=== PATIENT | female | born 1950 | race Caucasian/White ===

== ENCOUNTER 2023-07-10 16:58 | Emergency (ER) | payer OTHER ==
[2023-07-10 17:13] VITALS: BMI 22.4
[2023-07-10] MEDS ORDERED: LIDOCAINE HCL 1%, 10 MG/ML (20ML VIAL) ONE (18:41)
[2023-07-10] MEDS ORDERED: CEPHALEXIN MONOHYDRATE 500 MG CAPSULE (UD) PO ONE (19:03)
[2023-07-10] MEDS ORDERED: DIPHTH,PERTUSS(ACELL),TET 0.5 ML DISP.SYRIN IM ONE ×2 (19:04→19:31)
[2023-07-10] MEDS ORDERED: CEPHALEXIN MONOHYDRATE 500 MG CAPSULE (UD) ONE (19:30)
[2023-07-10] MEDS ORDERED: CEFAZOLIN 1 GM in DEXTROSE 5%-WATER - 50 ML IVPB ONE (21:52)
[2023-07-10] MEDS ORDERED: CEFAZOLIN 2 GM in DEXTROSE 5%-WATER - 50 ML IVPB ONE (21:53)
[2023-07-10 22:24] LABS: BASO % 0.4 % (0-2.0); EOS % 1.8 % (0-4.5); HEMATOCRIT 38.8 % (32.4-45.2); HEMOGLOBIN 12.8 GM/dL (10.7-15.3); LYMPH % 10.2 % (8-40); MCH 29.9 pg (25.7-33.7); MEAN CELL VOLUME 90.5 fl (80-96); MEAN PLT VOLUME 8.8 fl (7.5-11.1); MONO % 7.3 % (3.8-10.2); NEUT % 80.3 % (42.8-82.8); PLATELET COUNT 329 10^3/uL (134-434); RBC 4.29 M/mm3 (3.60-5.2); RDW 13.7 % (11.6-15.6); WHITE BLOOD COUNT 12.7 K/mm3 (4.0-10.0)
[2023-07-10 22:31] LABS: INR 1.12 (0.83-1.09)
[2023-07-10 22:34] LABS: ACTIVATED PTT 29.2 SECONDS (25.2-36.5)
[2023-07-10 22:49] LABS: POTASSIUM 4.7 mmol/L (3.5-5.1)
[2023-07-10 22:51] LABS: CALCIUM 9.5 mg/dL (8.5-10.1)
[2023-07-10 22:52] LABS: ALBUMIN 3.5 g/dl (3.4-5.0); BLOOD UREA NITROGEN 23.6 mg/dL (7-18); MAGNESIUM 2.1 mg/dL (1.8-2.4)
[2023-07-10 22:55] LABS: CREATININE 0.8 mg/dL (0.55-1.3)
[2023-07-10 22:57] LABS: BILIRUBIN,TOTAL 0.4 mg/dL (0.2-1)
[2023-07-11 00:53] VITALS: BP 126/81; PULSE 77; RESP 16; TEMP 98.5
== END 2023-07-11 02:10 ==
LOC: JER 16:58
PROC: 0HQ1XZZ Repair Face Skin, External Approach (ICD-10-PCS; principal; 2023-07-10)
PROC: 3E03329 Introduction of Other Anti-infective into Peripheral Vein, Percutaneous Approach (ICD-10-PCS; 2023-07-10)
PROC: 3E0234Z Introduction of Serum, Toxoid and Vaccine into Muscle, Percutaneous Approach (ICD-10-PCS; 2023-07-10)
DX: S02.81XA Fracture of other specified skull and facial bones, right side, initial encounter for closed fracture (principal); S01.81XA Laceration without foreign body of other part of head, initial encounter; V00.181A Fall from other rolling-type pedestrian conveyance, initial encounter; W22.8XXA Striking against or struck by other objects, initial encounter; Y93.39 Activity, other involving climbing, rappelling and jumping off; Y92.128 Other place in nursing home as the place of occurrence of the external cause
CPT/HCPCS: 12014; 36415; 70450-TC; 72125-TC; 80053; 83735; 85025; 85610; 85730; 86850; 86900; 86901; 90471; 90715; 93005; 93010; 96365; 99285-25

== ENCOUNTER 2023-07-26 11:14 | Inpatient (IN) | payer OTHER ==
[2023-07-26 11:43] VITALS: BMI 22.8
[2023-07-26] MEDS ORDERED: SODIUM CHLORIDE 2,041 ML IV ONE (12:00)
[2023-07-26] MEDS ORDERED: ACETAMINOPHEN 650 MG SUPP.RECT PR ONE (12:03)
[2023-07-26] MEDS ORDERED: ACETAMINOPHEN 650 MG SUPP.RECT ONE (12:07)
[2023-07-26] MEDS ORDERED: ACETAMINOPHEN INJECTION 100 ML IVPB ONE ×2 (12:23→18:25)
[2023-07-26 12:47] LABS: BASO % 0.3 % (0-2.0); EOS % 0.2 % (0-4.5); HEMATOCRIT 36.5 % (32.4-45.2); LYMPH % 6.7 % (8-40); MCH 29.5 pg (25.7-33.7); MCHC 32.9 g/dl (32.0-36.0); MEAN CELL VOLUME 89.7 fl (80-96); MEAN PLT VOLUME 8.7 fl (7.5-11.1); MONO % 9.1 % (3.8-10.2); NEUT % 83.7 % (42.8-82.8); PLATELET COUNT 359 10^3/uL (134-434); RBC 4.06 M/mm3 (3.60-5.2); WHITE BLOOD COUNT 13.5 K/mm3 (4.0-10.0)
[2023-07-26 12:57] LABS: EPI CELLS 19 /uL (0-25.1); HYALINE CASTS 5 /uL (0-3.1); INR 1.28 (0.83-1.09); PROTHROMBIN TIME (PATIENT) 14.8 SEC (9.7-13.0); URINE APPEARANCE CLEAR; URINE BACTERIA 3 /uL (0-1359); URINE BILIRUBIN NEGATIVE (NEGATIVE); URINE COLOR YELLOW; URINE GLUCOSE (UA) NEGATIVE (NEGATIVE); URINE KETONE TRACE (NEGATIVE); URINE LEUK ESTERASE NEGATIVE (NEGATIVE); URINE NITRITE NEGATIVE (NEGATIVE); URINE PROTEIN 1+ (NEGATIVE); URINE RBC 24 /uL (0-23.9); URINE WBC 23 /uL (0-25.8)
[2023-07-26 12:59] LABS: ACTIVATED PTT 28.9 SECONDS (25.2-36.5)
[2023-07-26 13:15] LABS: POTASSIUM 3.8 mmol/L (3.5-5.1)
[2023-07-26 13:16] LABS: CALCIUM 9.9 mg/dL (8.5-10.1)
[2023-07-26 13:17] LABS: ALBUMIN 2.7 g/dl (3.4-5.0); BLOOD UREA NITROGEN 35.5 mg/dL (7-18)
[2023-07-26 13:20] LABS: CREATININE 0.9 mg/dL (0.55-1.3)
[2023-07-26 13:23] LABS: BILIRUBIN,TOTAL 0.5 mg/dL (0.2-1); TOT PROT 7.3 g/dl (6.4-8.2)
[2023-07-26] MEDS ORDERED: VANCOMYCIN 1,000 MG in DEXTROSE 5%-WATER - 250 ML IVPB ONE (14:53)
[2023-07-26] MEDS ORDERED: VANCOMYCIN 1 GRAM (PRE-DOCKED) 1,000 MG/250 ML BAG IVPB ONE (15:02)
[2023-07-26] MEDS ORDERED: ACETAMINOPHEN 1000 MG/100 ML BAG IVPB PRN (16:53)
[2023-07-26] MEDS ORDERED: LACTATED RINGERS SOLUTION 1000 ML INFUS.BAG IV ONE (17:44)
[2023-07-26] MEDS: DEXTROSE 5%-LACTATED RINGERS 1,000 ML IV SCH (17:55)
[2023-07-26] MEDS: PIPERACILLIN/TAZOB 3.375 GM 3.375 GM in DEXTROSE 5%-WATER - 50 ML IVPB SCH (17:55)
[2023-07-26] MEDS ORDERED: PIPERACILLIN/TAZOB 3.375 GM 3.375 GM/50 ML BAG IVPB ONE (17:56)
[2023-07-26] MEDS ORDERED: PIPERACILLIN/TAZOB 3.375 GM 3.375 GM in DEXTROSE 5%-WATER - 50 ML IVPB SCH (18:00)
[2023-07-27] MEDS: CARBIDOPA/LEVODOPA 25/100 TABLET (FP) PO SCH ×5 (00:26→21:01)
[2023-07-27] MEDS: ATORVASTATIN CA 20 MG TABLET (FP) PO SCH ×2 (00:26→21:01)
[2023-07-27] MEDS ORDERED: PIPERACILLIN/TAZOB 3.375 GM 3.375 GM/50 ML BAG IVPB ONE ×3 (02:49→17:43)
[2023-07-27] MEDS: PIPERACILLIN/TAZOB 3.375 GM 3.375 GM in DEXTROSE 5%-WATER - 50 ML IVPB SCH ×3 (03:45→17:23)
[2023-07-27 11:11] LABS: BASO % 0.1 % (0-2.0); HEMATOCRIT 33.6 % (32.4-45.2); HEMOGLOBIN 11.4 GM/dL (10.7-15.3); LYMPH % 4.8 % (8-40); MCH 30.3 pg (25.7-33.7); MCHC 34.1 g/dl (32.0-36.0); MEAN CELL VOLUME 88.8 fl (80-96); MEAN PLT VOLUME 8.5 fl (7.5-11.1); NEUT % 88.1 % (42.8-82.8); PLATELET COUNT 303 10^3/uL (134-434); RBC 3.78 M/mm3 (3.60-5.2); RDW 13.6 % (11.6-15.6); WHITE BLOOD COUNT 13.4 K/mm3 (4.0-10.0)
[2023-07-27] MEDS ORDERED: ENOXAPARIN NA (PORCINE) 40 MG/0.4 ML DISP.SYRIN SQ ONE (11:23)
[2023-07-27] MEDS: ENOXAPARIN NA (PORCINE) 40 MG/0.4 ML DISP.SYRIN SQ SCH (11:30)
[2023-07-27 11:42] LABS: POTASSIUM 3.6 mmol/L (3.5-5.1)
[2023-07-27 11:44] LABS: ALBUMIN 2.4 g/dl (3.4-5.0); CALCIUM 8.5 mg/dL (8.5-10.1)
[2023-07-27 11:45] LABS: MAGNESIUM 1.9 mg/dL (1.8-2.4)
[2023-07-27 11:46] LABS: PHOSPHOROUS 1.8 mg/dL (2.5-4.9)
[2023-07-27 11:47] LABS: CREATININE 0.6 mg/dL (0.55-1.3)
[2023-07-27 11:48] LABS: BILIRUBIN,TOTAL 0.6 mg/dL (0.2-1); TOT PROT 6.4 g/dl (6.4-8.2)
[2023-07-27] MEDS ORDERED: VANCOMYCIN 1,000 MG in DEXTROSE 5%-WATER - 250 ML IVPB ONE (16:45)
[2023-07-27] MEDS ORDERED: CARBIDOPA/LEVODOPA 25/100 TABLET (FP) ONE (17:14)
[2023-07-27] MEDS ORDERED: VANCOMYCIN 1 GRAM (PRE-DOCKED) 1,000 MG/250 ML BAG IVPB ONE (17:14)
[2023-07-27] MEDS: DEXTROSE 5%-LACTATED RINGERS 1,000 ML IV SCH (17:22)
[2023-07-28] MEDS: PIPERACILLIN/TAZOB 3.375 GM 3.375 GM in DEXTROSE 5%-WATER - 50 ML IVPB SCH ×3 (02:25→17:53)
[2023-07-28] MEDS ORDERED: PIPERACILLIN/TAZOB 3.375 GM 3.375 GM/50 ML BAG IVPB ONE ×3 (02:30→17:54)
[2023-07-28 08:16] LABS: POTASSIUM 3.8 mmol/L (3.5-5.1)
[2023-07-28 08:23] LABS: CALCIUM 9.3 mg/dL (8.5-10.1)
[2023-07-28 08:25] LABS: ALBUMIN 2.5 g/dl (3.4-5.0); BASO % 0.2 % (0-2.0); EOS % 1.5 % (0-4.5); HEMATOCRIT 35.8 % (32.4-45.2); HEMOGLOBIN 12.1 GM/dL (10.7-15.3); LYMPH % 5.9 % (8-40); MCHC 33.9 g/dl (32.0-36.0); MEAN CELL VOLUME 88.7 fl (80-96); MEAN PLT VOLUME 8.8 fl (7.5-11.1); MONO % 6.2 % (3.8-10.2); NEUT % 86.2 % (42.8-82.8); PLATELET COUNT 313 10^3/uL (134-434); RBC 4.03 M/mm3 (3.60-5.2); RDW 13.6 % (11.6-15.6); WHITE BLOOD COUNT 13.5 K/mm3 (4.0-10.0)
[2023-07-28 08:27] LABS: CREATININE 0.6 mg/dL (0.55-1.3)
[2023-07-28 08:28] LABS: BILIRUBIN,TOTAL 0.6 mg/dL (0.2-1); TOT PROT 6.7 g/dl (6.4-8.2)
[2023-07-28] MEDS: CARBIDOPA/LEVODOPA 25/100 TABLET (FP) PO SCH ×4 (11:00→21:31)
[2023-07-28] MEDS: ENOXAPARIN NA (PORCINE) 40 MG/0.4 ML DISP.SYRIN SQ SCH (11:00)
[2023-07-28] MEDS ORDERED: CARBIDOPA/LEVODOPA 25/100 TABLET (FP) ONE (17:34)
[2023-07-28] MEDS ORDERED: CEFTRIAXONE 1 GM/50 ML BAG ONE (17:34)
[2023-07-28] MEDS ORDERED: DOXYCYCLINE HYCLATE 100 MG VIAL ONE (17:34)
[2023-07-28] MEDS ORDERED: DOXYCYCLINE HYCLATE 100 MG CAPSULE PO ONE (17:41)
[2023-07-28] MEDS: DEXTROSE 5%-LACTATED RINGERS 1,000 ML IV SCH (17:53)
[2023-07-28] MEDS: ATORVASTATIN CA 20 MG TABLET (FP) PO SCH (21:31)
[2023-07-29] MEDS: PIPERACILLIN/TAZOB 3.375 GM 3.375 GM in DEXTROSE 5%-WATER - 50 ML IVPB SCH ×3 (02:12→17:40)
[2023-07-29] MEDS: DEXTROSE 5%-LACTATED RINGERS 1,000 ML IV SCH ×2 (07:09→21:56)
[2023-07-29 09:17] LABS: BASO % 0.2 % (0-2.0); EOS % 2.3 % (0-4.5); HEMATOCRIT 35.9 % (32.4-45.2); HEMOGLOBIN 12.2 GM/dL (10.7-15.3); LYMPH % 7.6 % (8-40); MCH 30.3 pg (25.7-33.7); MCHC 34.1 g/dl (32.0-36.0); MEAN CELL VOLUME 88.9 fl (80-96); MEAN PLT VOLUME 8.9 fl (7.5-11.1); MONO % 6.4 % (3.8-10.2); NEUT % 83.5 % (42.8-82.8); PLATELET COUNT 286 10^3/uL (134-434); RBC 4.04 M/mm3 (3.60-5.2); WHITE BLOOD COUNT 12.3 K/mm3 (4.0-10.0)
[2023-07-29 09:42] LABS: BLOOD UREA NITROGEN 19.9 mg/dL (7-18); CALCIUM 8.9 mg/dL (8.5-10.1)
[2023-07-29 09:43] LABS: ALBUMIN 2.2 g/dl (3.4-5.0)
[2023-07-29 09:45] LABS: CREATININE 0.7 mg/dL (0.55-1.3)
[2023-07-29 09:47] LABS: BILIRUBIN,TOTAL 0.4 mg/dL (0.2-1); TOT PROT 6.1 g/dl (6.4-8.2)
[2023-07-29] MEDS: ENOXAPARIN NA (PORCINE) 40 MG/0.4 ML DISP.SYRIN SQ SCH (09:50)
[2023-07-29] MEDS: CARBIDOPA/LEVODOPA 25/100 TABLET (FP) PO SCH ×4 (09:50→21:56)
[2023-07-29] MEDS: ATORVASTATIN CA 20 MG TABLET (FP) PO SCH (21:56)
[2023-07-30] MEDS: PIPERACILLIN/TAZOB 3.375 GM 3.375 GM in DEXTROSE 5%-WATER - 50 ML IVPB SCH ×3 (01:33→17:45)
[2023-07-30] MEDS: CARBIDOPA/LEVODOPA 25/100 TABLET (FP) PO SCH ×4 (09:07→21:24)
[2023-07-30] MEDS: ENOXAPARIN NA (PORCINE) 40 MG/0.4 ML DISP.SYRIN SQ SCH (09:07)
[2023-07-30 09:34] LABS: BASO % 0.4 % (0-2.0); EOS % 2.5 % (0-4.5); HEMATOCRIT 35.2 % (32.4-45.2); HEMOGLOBIN 11.6 GM/dL (10.7-15.3); LYMPH % 8.9 % (8-40); MCH 29.5 pg (25.7-33.7); MEAN CELL VOLUME 89.6 fl (80-96); MEAN PLT VOLUME 9.2 fl (7.5-11.1); NEUT % 83.2 % (42.8-82.8); PLATELET COUNT 325 10^3/uL (134-434); RBC 3.92 M/mm3 (3.60-5.2); RDW 13.6 % (11.6-15.6); WHITE BLOOD COUNT 12.6 K/mm3 (4.0-10.0)
[2023-07-30 09:57] LABS: POTASSIUM 3.4 mmol/L (3.5-5.1)
[2023-07-30 10:14] LABS: ALBUMIN 2.4 g/dl (3.4-5.0)
[2023-07-30 10:15] LABS: BLOOD UREA NITROGEN 15.5 mg/dL (7-18); CALCIUM 9.6 mg/dL (8.5-10.1)
[2023-07-30 10:18] LABS: CREATININE 0.6 mg/dL (0.55-1.3)
[2023-07-30] MEDS ORDERED: ACETAMINOPHEN 325 MG TABLET (FP) PO PRN (10:18)
[2023-07-30 10:20] LABS: BILIRUBIN,TOTAL 0.5 mg/dL (0.2-1)
[2023-07-30] MEDS: DEXTROSE 5%-LACTATED RINGERS 1,000 ML IV SCH (17:47)
[2023-07-30] MEDS: ATORVASTATIN CA 20 MG TABLET (FP) PO SCH (21:24)
[2023-07-31] MEDS: PIPERACILLIN/TAZOB 3.375 GM 3.375 GM in DEXTROSE 5%-WATER - 50 ML IVPB SCH ×3 (01:35→18:15)
[2023-07-31] MEDS ORDERED: SODIUM CHLORIDE 1,000 ML IV STA (01:50)
[2023-07-31] MEDS ORDERED: POTASSIUM CHLORIDE TABS 20 MEQ TABLET.ER (FP) PO ONE (01:52)
[2023-07-31] MEDS: DEXTROSE 5%-LACTATED RINGERS 1,000 ML IV SCH ×2 (05:49→18:15)
[2023-07-31] MEDS: CARBIDOPA/LEVODOPA 25/100 TABLET (FP) PO SCH ×4 (09:55→22:18)
[2023-07-31] MEDS: ENOXAPARIN NA (PORCINE) 40 MG/0.4 ML DISP.SYRIN SQ SCH (09:55)
[2023-07-31 10:24] LABS: BASO % 0.6 % (0-2.0); EOS % 1.5 % (0-4.5); HEMATOCRIT 31.8 % (32.4-45.2); HEMOGLOBIN 10.4 GM/dL (10.7-15.3); LYMPH % 9.2 % (8-40); MCH 29.5 pg (25.7-33.7); MCHC 32.8 g/dl (32.0-36.0); MEAN PLT VOLUME 9.6 fl (7.5-11.1); MONO % 5.1 % (3.8-10.2); NEUT % 83.6 % (42.8-82.8); PLATELET COUNT 312 10^3/uL (134-434); RBC 3.54 M/mm3 (3.60-5.2); RDW 13.6 % (11.6-15.6); WHITE BLOOD COUNT 12.3 K/mm3 (4.0-10.0)
[2023-07-31 10:55] LABS: POTASSIUM 4.1 mmol/L (3.5-5.1)
[2023-07-31 11:09] LABS: CALCIUM 8.2 mg/dL (8.5-10.1)
[2023-07-31 11:11] LABS: BLOOD UREA NITROGEN 13.4 mg/dL (7-18); CREATININE 0.7 mg/dL (0.55-1.3)
[2023-07-31 11:13] LABS: BILIRUBIN,TOTAL 0.4 mg/dL (0.2-1); TOT PROT 5.7 g/dl (6.4-8.2)
[2023-07-31] MEDS: ATORVASTATIN CA 20 MG TABLET (FP) PO SCH (22:18)
[2023-07-31 22:20] VITALS: RESP 20
[2023-08-01] MEDS ORDERED: ACETAMINOPHEN 1000 MG/100 ML BAG IVPB ONE (01:05)
[2023-08-01] MEDS: PIPERACILLIN/TAZOB 3.375 GM 3.375 GM in DEXTROSE 5%-WATER - 50 ML IVPB SCH ×3 (01:54→17:37)
[2023-08-01 09:46] LABS: BASO % 0.4 % (0-2.0); EOS % 1.4 % (0-4.5); HEMATOCRIT 31.3 % (32.4-45.2); HEMOGLOBIN 10.2 GM/dL (10.7-15.3); LYMPH % 9.5 % (8-40); MCH 29.3 pg (25.7-33.7); MCHC 32.6 g/dl (32.0-36.0); MEAN CELL VOLUME 89.7 fl (80-96); MEAN PLT VOLUME 9.2 fl (7.5-11.1); MONO % 4.7 % (3.8-10.2); PLATELET COUNT 294 10^3/uL (134-434); RBC 3.48 M/mm3 (3.60-5.2); RDW 13.8 % (11.6-15.6); WHITE BLOOD COUNT 12.8 K/mm3 (4.0-10.0)
[2023-08-01] MEDS ORDERED: PIPERACILLIN/TAZOBACTAM 3.375 GM VIAL IVPB ONE ×2 (09:50→16:47)
[2023-08-01 09:58] LABS: POTASSIUM 3.7 mmol/L (3.5-5.1)
[2023-08-01 10:04] LABS: CALCIUM 8.7 mg/dL (8.5-10.1); MAGNESIUM 1.8 mg/dL (1.8-2.4)
[2023-08-01 10:07] LABS: BLOOD UREA NITROGEN 11.4 mg/dL (7-18); CREATININE 0.6 mg/dL (0.55-1.3)
[2023-08-01 10:08] LABS: BILIRUBIN,TOTAL 0.4 mg/dL (0.2-1); TOT PROT 5.5 g/dl (6.4-8.2)
[2023-08-01] MEDS: CARBIDOPA/LEVODOPA 25/100 TABLET (FP) PO SCH ×4 (10:43→21:33)
[2023-08-01] MEDS: ENOXAPARIN NA (PORCINE) 40 MG/0.4 ML DISP.SYRIN SQ SCH (10:43)
[2023-08-01] MEDS: DEXTROSE 5%-LACTATED RINGERS 1,000 ML IV SCH (17:56)
[2023-08-01] MEDS: ATORVASTATIN CA 20 MG TABLET (FP) PO SCH (21:34)
[2023-08-02] MEDS: PIPERACILLIN/TAZOB 3.375 GM 3.375 GM in DEXTROSE 5%-WATER - 50 ML IVPB SCH ×2 (01:26→09:46)
[2023-08-02] MEDS: DEXTROSE 5%-LACTATED RINGERS 1,000 ML IV SCH (06:42)
[2023-08-02] MEDS: CARBIDOPA/LEVODOPA 25/100 TABLET (FP) PO SCH ×4 (09:45→22:38)
[2023-08-02] MEDS: ENOXAPARIN NA (PORCINE) 40 MG/0.4 ML DISP.SYRIN SQ SCH (09:46)
[2023-08-02 09:51] VITALS: PULSE 77
[2023-08-02 10:16] LABS: BASO % 0.4 % (0-2.0); EOS % 0.6 % (0-4.5); HEMATOCRIT 29.9 % (32.4-45.2); HEMOGLOBIN 9.8 GM/dL (10.7-15.3); LYMPH % 7.3 % (8-40); MCH 29.7 pg (25.7-33.7); MCHC 32.9 g/dl (32.0-36.0); MEAN CELL VOLUME 90.2 fl (80-96); MEAN PLT VOLUME 9.3 fl (7.5-11.1); MONO % 4.3 % (3.8-10.2); NEUT % 87.4 % (42.8-82.8); PLATELET COUNT 360 10^3/uL (134-434); RBC 3.31 M/mm3 (3.60-5.2); RDW 14.2 % (11.6-15.6); WHITE BLOOD COUNT 15.4 K/mm3 (4.0-10.0)
[2023-08-02 10:27] LABS: POTASSIUM 3.7 mmol/L (3.5-5.1)
[2023-08-02 10:49] LABS: ALBUMIN 2.1 g/dl (3.4-5.0); BLOOD UREA NITROGEN 12.8 mg/dL (7-18); CALCIUM 8.4 mg/dL (8.5-10.1); MAGNESIUM 1.9 mg/dL (1.8-2.4)
[2023-08-02 10:53] LABS: CREATININE 0.7 mg/dL (0.55-1.3)
[2023-08-02 10:54] LABS: BILIRUBIN,TOTAL 0.4 mg/dL (0.2-1); TOT PROT 6.1 g/dl (6.4-8.2)
[2023-08-02] MEDS ORDERED: BACITRACIN ZINC 15 GM TUBE TOPICAL OINTMENT TP SCH (11:00)
[2023-08-02 14:58] VITALS: BP 109/68; TEMP 99.3
== END 2023-08-02 22:30 | DRG 177 ==
LOC: JER 11:14 → JERBED 14:58 → OBSVTOIN 17:43 → J8W 07-28 18:37
PROVIDERS: ADMIT Internal Medicine; ATTEND Nurse Practitioner Family
DX: J69.0 Pneumonitis due to inhalation of food and vomit (principal); G93.41 Metabolic encephalopathy; R53.2 Functional quadriplegia; N17.9 Acute kidney failure, unspecified; N39.0 Urinary tract infection, site not specified; R41.82 Altered mental status, unspecified; G20.A1 Parkinson's disease without dyskinesia, without mention of fluctuations; I12.9 Hypertensive chronic kidney disease with stage 1 through stage 4 chronic kidney disease, or unspecified chronic kidney disease; N18.9 Chronic kidney disease, unspecified; F32.9 Major depressive disorder, single episode, unspecified; I44.7 Left bundle-branch block, unspecified; D72.829 Elevated white blood cell count, unspecified; F02.80 Dementia in other diseases classified elsewhere, unspecified severity, without behavioral disturbance, psychotic disturbance, mood disturbance, and anxiety; R13.10 Dysphagia, unspecified
CPT/HCPCS: 0241U-QW; 36415; 70450-TC; 71045-TC-FY; 80053; 81003; 83605; 83735; 84100; 85025; 85610; 85730; 86850; 86900; 86901; 87040; 87081; 87086; 87633; 87635; 93005; 93010; 99285-25; G0378

== ENCOUNTER 2023-10-04 06:25 | Inpatient (IN) | payer OTHER ==
[2023-10-04 06:55] VITALS: BMI 23.1
[2023-10-04 08:50] LABS: BASO % 0.5 % (0-2.0); EOS % 0.3 % (0-4.5); HEMATOCRIT 38.9 % (32.4-45.2); HEMOGLOBIN 13.2 GM/dL (10.7-15.3); LYMPH % 8.9 % (8-40); MCHC 33.9 g/dl (32.0-36.0); MEAN CELL VOLUME 88.6 fl (80-96); MEAN PLT VOLUME 8.5 fl (7.5-11.1); MONO % 5.3 % (3.8-10.2); PLATELET COUNT 345 10^3/uL (134-434); RBC 4.39 M/mm3 (3.60-5.2); RDW 17.1 % (11.6-15.6); WHITE BLOOD COUNT 7.5 K/mm3 (4.0-10.0)
[2023-10-04 08:58] LABS: INR 1.09 (0.83-1.09); PROTHROMBIN TIME (PATIENT) 12.6 SEC (9.7-13.0)
[2023-10-04 09:01] LABS: ACTIVATED PTT 29.7 SECONDS (25.2-36.5)
[2023-10-04 09:04] LABS: POTASSIUM 4.6 mmol/L (3.5-5.1)
[2023-10-04 09:06] LABS: BLOOD UREA NITROGEN 16.4 mg/dL (7-18); CALCIUM 9.8 mg/dL (8.5-10.1)
[2023-10-04 09:07] LABS: ALBUMIN 3.4 g/dl (3.4-5.0)
[2023-10-04 09:09] LABS: CREATININE 0.5 mg/dL (0.55-1.3)
[2023-10-04 09:12] LABS: BILIRUBIN,TOTAL 0.4 mg/dL (0.2-1); TOT PROT 7.5 g/dl (6.4-8.2)
[2023-10-04] MEDS ORDERED: ACETAMINOPHEN 325 MG TABLET (FP) PO PRN (13:36)
[2023-10-04] MEDS ORDERED: CARBIDOPA/LEVODOPA 25/100 TABLET (FP) ONE ×3 (14:32→22:50)
[2023-10-04] MEDS ORDERED: CITALOPRAM HYDROBROMIDE 10 MG TABLET ONE (14:32)
[2023-10-04] MEDS: CITALOPRAM HYDROBROMIDE 10 MG TABLET PO SCH (14:42)
[2023-10-04] MEDS: CARBIDOPA/LEVODOPA 25/100 TABLET (FP) PO SCH (14:42)
[2023-10-04] MEDS: SODIUM CHLORIDE 1,000 ML IV SCH (14:42)
[2023-10-04] MEDS ORDERED: ATORVASTATIN CA 20 MG TABLET (FP) ONE (22:50)
[2023-10-04] MEDS: ATORVASTATIN CA 20 MG TABLET (FP) PO SCH (23:03)
[2023-10-05 07:39] LABS: HEMATOCRIT 35.3 % (32.4-45.2); HEMOGLOBIN 11.6 GM/dL (10.7-15.3); MCH 29.7 pg (25.7-33.7); MCHC 32.9 g/dl (32.0-36.0); MEAN CELL VOLUME 90.2 fl (80-96); MEAN PLT VOLUME 8.4 fl (7.5-11.1); PLATELET COUNT 287 10^3/uL (134-434); RBC 3.92 M/mm3 (3.60-5.2); RDW 17.1 % (11.6-15.6); WHITE BLOOD COUNT 3.6 K/mm3 (4.0-10.0)
[2023-10-05 07:49] LABS: INR 1.17 (0.83-1.09); PROTHROMBIN TIME (PATIENT) 13.5 SEC (9.7-13.0)
[2023-10-05 07:53] LABS: POTASSIUM 4.1 mmol/L (3.5-5.1)
[2023-10-05 07:55] LABS: CALCIUM 9.2 mg/dL (8.5-10.1)
[2023-10-05 07:56] LABS: ALBUMIN 2.9 g/dl (3.4-5.0); BLOOD UREA NITROGEN 14.3 mg/dL (7-18)
[2023-10-05 07:59] LABS: CREATININE 0.4 mg/dL (0.55-1.3)
[2023-10-05 08:01] LABS: BILIRUBIN,TOTAL 0.5 mg/dL (0.2-1); TOT PROT 6.4 g/dl (6.4-8.2)
[2023-10-05] MEDS: ENOXAPARIN NA (PORCINE) 40 MG/0.4 ML DISP.SYRIN SQ SCH (10:52)
[2023-10-05] MEDS ORDERED: CARBIDOPA/LEVODOPA 25/100 TABLET (FP) ONE (14:23)
[2023-10-07] MEDS: DEXTROSE 5%-0.45% SALINE 1,000 ML IV SCH (04:30)
[2023-10-07 10:39] LABS: EPI CELLS 33 /uL (0-25.1); HYALINE CASTS 0 /uL (0-3.1); URINE APPEARANCE Error; URINE BACTERIA 38 /uL (0-1359); URINE BILIRUBIN NEGATIVE (NEGATIVE); URINE COLOR YELLOW; URINE GLUCOSE (UA) NEGATIVE (NEGATIVE); URINE KETONE TRACE (NEGATIVE); URINE LEUK ESTERASE 1+ (NEGATIVE); URINE NITRITE NEGATIVE (NEGATIVE); URINE PROTEIN NEGATIVE (NEGATIVE); URINE RBC 19 /uL (0-23.9); URINE WBC 23 /uL (0-25.8)
[2023-10-07 12:12] LABS: URINE CRYSTALS PRESENT /hpf
[2023-10-07 19:21] VITALS: RESP 18
[2023-10-09 02:02] VITALS: BP 139/61; PULSE 81; TEMP 97.6
== END 2023-10-09 08:40 | DRG 57 ==
LOC: JER 06:25 → JERBED 08:02 → OBSVTOIN 10-05 08:02 → J4S 10-05 16:56
PROVIDERS: ADMIT Internal Medicine; ATTEND Internal Medicine
DX: G20.A1 Parkinson's disease without dyskinesia, without mention of fluctuations (principal); I12.9 Hypertensive chronic kidney disease with stage 1 through stage 4 chronic kidney disease, or unspecified chronic kidney disease; N18.9 Chronic kidney disease, unspecified; G31.83 Neurocognitive disorder with Lewy bodies; F02.80 Dementia in other diseases classified elsewhere, unspecified severity, without behavioral disturbance, psychotic disturbance, mood disturbance, and anxiety
CPT/HCPCS: 0241U-QW; 36415; 70450-TC; 70486-TC; 71045-TC-FY; 72125-TC; 72170-TC-FY; 72192-TC; 80053; 81003; 82962; 83735; 84484; 85025; 85027; 85610; 85730; 86850; 86900; 86901; 93005; 93010; 93306-TC; 93880-TC; 97116-GP; 97161-GP; 99285-25; G0378

== ENCOUNTER 2023-11-27 15:37 | Inpatient (IN) | payer OTHER ==
[2023-11-27 16:35] LABS: BASO % 0.3 % (0-2.0); HEMATOCRIT 40.7 % (32.4-45.2); HEMOGLOBIN 13.7 GM/dL (10.7-15.3); LYMPH % 7.9 % (8-40); MCH 29.7 pg (25.7-33.7); MCHC 33.6 g/dl (32.0-36.0); MEAN CELL VOLUME 88.4 fl (80-96); MEAN PLT VOLUME 8.3 fl (7.5-11.1); MONO % 4.5 % (3.8-10.2); NEUT % 86.3 % (42.8-82.8); PLATELET COUNT 269 10^3/uL (134-434); WHITE BLOOD COUNT 7.9 K/mm3 (4.0-10.0)
[2023-11-27 16:40] LABS: INR 1.11 (0.83-1.09); PROTHROMBIN TIME (PATIENT) 12.5 SEC (9.7-13.0)
[2023-11-27 16:43] LABS: ACTIVATED PTT 28.5 SECONDS (25.2-36.5)
[2023-11-27 16:56] LABS: EPI CELLS >36 /uL (0-25.1); HYALINE CASTS 122 /uL (0-3.1); PH,URINE 8.5 (5.0-8.0); URINE APPEARANCE TURBID; URINE BACTERIA >9,000 /uL (0-1359); URINE BILIRUBIN NEGATIVE (NEGATIVE); URINE COLOR YELLOW; URINE GLUCOSE (UA) NEGATIVE (NEGATIVE); URINE KETONE NEGATIVE (NEGATIVE); URINE LEUK ESTERASE 3+ (NEGATIVE); URINE NITRITE NEGATIVE (NEGATIVE); URINE PROTEIN 3+ (NEGATIVE); URINE RBC 64 /uL (0-23.9); URINE WBC 5230 /uL (0-25.8)
[2023-11-27 17:05] LABS: POTASSIUM 4.4 mmol/L (3.5-5.1)
[2023-11-27 17:07] LABS: CALCIUM 9.3 mg/dL (8.5-10.1)
[2023-11-27 17:08] LABS: ALBUMIN 3.3 g/dl (3.4-5.0); BLOOD UREA NITROGEN 20.3 mg/dL (7-18)
[2023-11-27 17:10] LABS: CREATININE 0.6 mg/dL (0.55-1.3)
[2023-11-27 17:12] LABS: BILIRUBIN,TOTAL 0.4 mg/dL (0.2-1); TOT PROT 6.6 g/dl (6.4-8.2)
[2023-11-27 17:33] LABS: YEAST FEW (NEGATIVE)
[2023-11-27] MEDS ORDERED: MIDAZOLAM HCL 2 MG/2 ML SINGLE DOSE VIAL ONE (17:53)
[2023-11-27] MEDS ORDERED: CEFTRIAXONE 1 GM/50 ML BAG ONE (17:58)
[2023-11-27] MEDS: CEFTRIAXONE 1,000 MG in DEXTROSE 5%-WATER - 50 ML IVPB ONE (18:07)
[2023-11-27] MEDS: MIDAZOLAM HCL 2 MG/2 ML SINGLE DOSE VIAL IVPUSH ONE (18:07)
[2023-11-27] MEDS ORDERED: LIDOCAINE 4% PATCH TP ONE (19:01)
[2023-11-27] MEDS ORDERED: KETOROLAC TROMETHAMINE 30 MG/1 ML VIAL ONE (19:01)
[2023-11-27] MEDS ORDERED: ACETAMINOPHEN 500 MG TABLET (FP) ONE (19:02)
[2023-11-27] MEDS ORDERED: ACETAMINOPHEN INJECTION 100 ML IVPB ONE (20:04)
[2023-11-27] MEDS: ACETAMINOPHEN 1000 MG/100 ML BAG IVPB ONE (20:16)
[2023-11-28 08:18] LABS: BASO % 0.6 % (0-2.0); EOS % 1.3 % (0-4.5); HEMOGLOBIN 12.9 GM/dL (10.7-15.3); LYMPH % 10.2 % (8-40); MCH 29.7 pg (25.7-33.7); MCHC 33.2 g/dl (32.0-36.0); MEAN CELL VOLUME 89.4 fl (80-96); MEAN PLT VOLUME 8.9 fl (7.5-11.1); MONO % 7.5 % (3.8-10.2); NEUT % 80.4 % (42.8-82.8); PLATELET COUNT 225 10^3/uL (134-434); RBC 4.36 M/mm3 (3.60-5.2); RDW 15.9 % (11.6-15.6)
[2023-11-28 08:22] LABS: POTASSIUM 4.1 mmol/L (3.5-5.1)
[2023-11-28 08:25] LABS: CALCIUM 9.2 mg/dL (8.5-10.1)
[2023-11-28 08:26] LABS: ALBUMIN 3.2 g/dl (3.4-5.0); BLOOD UREA NITROGEN 16.7 mg/dL (7-18); MAGNESIUM 2.1 mg/dL (1.8-2.4)
[2023-11-28 08:29] LABS: CREATININE 0.5 mg/dL (0.55-1.3); PHOSPHOROUS 3.1 mg/dL (2.5-4.9)
[2023-11-28 08:30] LABS: BILIRUBIN,TOTAL 1.1 mg/dL (0.2-1)
[2023-11-28 08:31] LABS: TOT PROT 6.1 g/dl (6.4-8.2)
[2023-11-28] MEDS: CEFTRIAXONE 1 GM in DEXTROSE 5%-WATER - 50 ML IVPB SCH (09:38)
[2023-11-28] MEDS: ENOXAPARIN NA (PORCINE) 40 MG/0.4 ML DISP.SYRIN SQ SCH (09:38)
[2023-11-28] MEDS: ASCORBIC ACID 500 MG TABLET (FP) PO SCH (09:39)
[2023-11-28] MEDS: CARBIDOPA/LEVODOPA 25/100 TABLET (FP) PO SCH (09:39)
[2023-11-28] MEDS: CITALOPRAM HYDROBROMIDE 10 MG TABLET PO SCH (12:08)
[2023-11-28 12:13] LABS: EPI CELLS >36 /uL (0-25.1); HYALINE CASTS 6 /uL (0-3.1); URINE APPEARANCE TURBID; URINE BACTERIA 1929 /uL (0-1359); URINE BILIRUBIN NEGATIVE (NEGATIVE); URINE COLOR YELLOW; URINE GLUCOSE (UA) NEGATIVE (NEGATIVE); URINE KETONE TRACE (NEGATIVE); URINE LEUK ESTERASE 3+ (NEGATIVE); URINE NITRITE NEGATIVE (NEGATIVE); URINE PROTEIN NEGATIVE (NEGATIVE); URINE RBC 25 /uL (0-23.9); URINE WBC 1410 /uL (0-25.8)
[2023-11-28] MEDS: SODIUM CHLORIDE 250 ML IV STA (16:57)
[2023-11-28] MEDS: ATORVASTATIN CA 20 MG TABLET (FP) PO SCH (21:48)
[2023-11-29 08:21] LABS: CALCIUM 9.6 mg/dL (8.5-10.1)
[2023-11-29 08:22] LABS: ALBUMIN 3.3 g/dl (3.4-5.0); BLOOD UREA NITROGEN 16.8 mg/dL (7-18)
[2023-11-29 08:24] LABS: CREATININE 0.6 mg/dL (0.55-1.3)
[2023-11-29 08:25] LABS: BILIRUBIN,DIRECT 0.2 mg/dL (0.0-0.2); BILIRUBIN,TOTAL 0.7 mg/dL (0.2-1); TOT PROT 6.5 g/dl (6.4-8.2)
[2023-11-29 08:26] LABS: BASO % 0.8 % (0-2.0); EOS % 1.2 % (0-4.5); HEMATOCRIT 38.9 % (32.4-45.2); HEMOGLOBIN 13.1 GM/dL (10.7-15.3); LYMPH % 13.7 % (8-40); MCH 29.9 pg (25.7-33.7); MCHC 33.6 g/dl (32.0-36.0); MEAN PLT VOLUME 8.9 fl (7.5-11.1); MONO % 7.3 % (3.8-10.2); PLATELET COUNT 207 10^3/uL (134-434); RBC 4.37 M/mm3 (3.60-5.2); RDW 15.8 % (11.6-15.6)
[2023-11-29] MEDS: CARBIDOPA/LEVODOPA 25/100 TABLET (FP) PO SCH (11:00)
[2023-11-29] MEDS: ENOXAPARIN NA (PORCINE) 40 MG/0.4 ML DISP.SYRIN SQ SCH (12:18)
[2023-11-29] MEDS: CEFTRIAXONE 1 GM in DEXTROSE 5%-WATER - 50 ML IVPB SCH (12:19)
[2023-11-29] MEDS: ASCORBIC ACID 500 MG TABLET (FP) PO SCH (12:20)
[2023-11-29] MEDS: CITALOPRAM HYDROBROMIDE 10 MG TABLET PO SCH (12:20)
[2023-11-29 13:04] VITALS: BP 138/70; PULSE 80; RESP 16; TEMP 97.8
[2023-11-29 14:54] VITALS: BMI 15.3
[2023-11-29] MEDS: ATORVASTATIN CA 20 MG TABLET (FP) PO SCH (21:23)
== END 2023-11-29 21:29 | DRG 689 ==
LOC: JER 15:37 → JERBED 20:51 → J4W 23:20 → J6S 11-28 23:42
PROVIDERS: ADMIT Internal Medicine; ATTEND Internal Medicine
PROC: 0HQ1XZZ Repair Face Skin, External Approach (ICD-10-PCS; principal; 2023-11-27)
DX: N39.0 Urinary tract infection, site not specified (principal); E43 Unspecified severe protein-calorie malnutrition; G93.41 Metabolic encephalopathy; Z68.1 Body mass index [BMI] 19.9 or less, adult; B96.4 Proteus (mirabilis) (morganii) as the cause of diseases classified elsewhere; B95.2 Enterococcus as the cause of diseases classified elsewhere; G20.A1 Parkinson's disease without dyskinesia, without mention of fluctuations; I12.9 Hypertensive chronic kidney disease with stage 1 through stage 4 chronic kidney disease, or unspecified chronic kidney disease; N18.9 Chronic kidney disease, unspecified; F32.A Depression, unspecified; E78.00 Pure hypercholesterolemia, unspecified; S01.112A Laceration without foreign body of left eyelid and periocular area, initial encounter; W18.39XA Other fall on same level, initial encounter; Y92.099 Unspecified place in other non-institutional residence as the place of occurrence of the external cause; Y99.9 Unspecified external cause status
CPT/HCPCS: 36415; 70450-TC; 70486-TC; 71045-TC-FY; 72125-TC; 72170-TC-FY; 80053; 81003; 82248; 82550; 83735; 84100; 84484; 85025; 85610; 85730; 86850; 86900; 86901; 87086; 87186; 87635; 93005; 93010; 97116-GP; 97162-GP; 99285-25; J0131

== ENCOUNTER 2024-02-04 09:28 | Inpatient (IN) | payer OTHER ==
[2024-02-04 12:02] LABS: BASO % 0.8 % (0-2.0); EOS % 2.2 % (0-4.5); HEMATOCRIT 36.7 % (32.4-45.2); HEMOGLOBIN 12.5 GM/dL (10.7-15.3); LYMPH % 17.4 % (8-40); MCH 32.2 pg (25.7-33.7); MEAN CELL VOLUME 94.6 fl (80-96); MEAN PLT VOLUME 7.1 fl (7.5-11.1); MONO % 5.5 % (3.8-10.2); NEUT % 74.1 % (42.8-82.8); PLATELET COUNT 335 10^3/uL (134-434); RBC 3.88 M/mm3 (3.60-5.2); RDW 14.9 % (11.6-15.6); WHITE BLOOD COUNT 4.4 K/mm3 (4.0-10.0)
[2024-02-04 12:09] LABS: INR 1.06 (0.83-1.09)
[2024-02-04 12:12] LABS: ACTIVATED PTT 30.2 SECONDS (25.2-36.5)
[2024-02-04 12:38] LABS: POTASSIUM 4.5 mmol/L (3.5-5.1)
[2024-02-04 12:51] LABS: ALBUMIN 3.4 g/dl (3.4-5.0); BLOOD UREA NITROGEN 15.5 mg/dL (7-18); CALCIUM 8.9 mg/dL (8.5-10.1); MAGNESIUM 1.9 mg/dL (1.8-2.4)
[2024-02-04 12:56] LABS: BILIRUBIN,TOTAL 0.7 mg/dL (0.2-1); CREATININE 0.6 mg/dL (0.55-1.3); TOT PROT 6.8 g/dl (6.4-8.2)
[2024-02-04] MEDS: CARBIDOPA/LEVODOPA 25/100 TABLET (FP) PO SCH (21:46)
[2024-02-04] MEDS: ATORVASTATIN CA 20 MG TABLET (FP) PO SCH (21:46)
[2024-02-05 10:00] LABS: BASO % 0.6 % (0-2.0); EOS % 0.9 % (0-4.5); HEMATOCRIT 37.3 % (32.4-45.2); HEMOGLOBIN 12.7 GM/dL (10.7-15.3); LYMPH % 11.4 % (8-40); MCHC 34.2 g/dl (32.0-36.0); MEAN CELL VOLUME 93.6 fl (80-96); MEAN PLT VOLUME 7.8 fl (7.5-11.1); MONO % 3.6 % (3.8-10.2); NEUT % 83.5 % (42.8-82.8); PLATELET COUNT 355 10^3/uL (134-434); RBC 3.98 M/mm3 (3.60-5.2); RDW 15.3 % (11.6-15.6)
[2024-02-05 10:01] LABS: POTASSIUM 4.2 mmol/L (3.5-5.1)
[2024-02-05 10:09] LABS: BLOOD UREA NITROGEN 28.4 mg/dL (7-18); CALCIUM 9.6 mg/dL (8.5-10.1)
[2024-02-05 10:10] LABS: ALBUMIN 3.5 g/dl (3.4-5.0)
[2024-02-05 10:12] LABS: CREATININE 0.7 mg/dL (0.55-1.3)
[2024-02-05 10:13] LABS: BILIRUBIN,TOTAL 1.1 mg/dL (0.2-1)
[2024-02-05 10:14] LABS: TOT PROT 6.5 g/dl (6.4-8.2)
[2024-02-05] MEDS: CITALOPRAM HYDROBROMIDE 10 MG TABLET PO SCH (10:31)
[2024-02-05] MEDS: ENOXAPARIN NA (PORCINE) 40 MG/0.4 ML DISP.SYRIN SQ SCH (10:31)
[2024-02-05] MEDS: MIRTAZAPINE 15 MG TABLET (FP) PO SCH (21:56)
[2024-02-06 13:40] VITALS: BMI 14.6
[2024-02-06 22:37] VITALS: RESP 18
[2024-02-07 07:59] VITALS: BP 120/75; PULSE 77; TEMP 97.9
== END 2024-02-07 11:27 | DRG 56 ==
LOC: JER 09:28 → JERBED 15:29 → J7W 16:33 → OBSVTOIN 02-05 12:35
PROVIDERS: ADMIT Internal Medicine; ATTEND Nurse Practitioner
DX: G20.A1 Parkinson's disease without dyskinesia, without mention of fluctuations (principal); E43 Unspecified severe protein-calorie malnutrition; R53.2 Functional quadriplegia; Z68.1 Body mass index [BMI] 19.9 or less, adult; R64 Cachexia; F02.80 Dementia in other diseases classified elsewhere, unspecified severity, without behavioral disturbance, psychotic disturbance, mood disturbance, and anxiety; I12.9 Hypertensive chronic kidney disease with stage 1 through stage 4 chronic kidney disease, or unspecified chronic kidney disease; R62.7 Adult failure to thrive; N18.30 Chronic kidney disease, stage 3 unspecified
CPT/HCPCS: 0241U-QW; 36415; 80053; 83735; 84100; 85025; 85610; 85730; 86850; 86900; 86901; 93306-TC; 99285-25; G0378

== ENCOUNTER 2024-03-04 23:45 | Emergency (ER) | payer OTHER ==
[2024-03-04 23:54] VITALS: BP 126/78; PULSE 81; RESP 17; TEMP 97.9; BMI 29.5
== END 2024-03-05 03:52 ==
LOC: JER 23:45
DX: R51.9 Headache, unspecified (principal); M25.512 Pain in left shoulder; W19.XXXA Unspecified fall, initial encounter
CPT/HCPCS: 70450-TC; 70486-TC; 71045-TC-FY; 72125-TC; 72170-TC-FY; 73030-TC-LT-FY; 99284-25

== ENCOUNTER 2024-03-06 02:18 | Emergency (ER) | payer OTHER ==
[2024-03-06 02:28] VITALS: BMI 13.5
[2024-03-06] MEDS: SODIUM CHLORIDE 0.9% 1000 ML INFUS.BAG IV STA (02:46)
[2024-03-06 02:56] LABS: BASO % 0.6 % (0-2.0); EOS % 3.4 % (0-4.5); HEMATOCRIT 34.3 % (32.4-45.2); HEMOGLOBIN 12.1 GM/dL (10.7-15.3); LYMPH % 15.9 % (8-40); MCH 33.3 pg (25.7-33.7); MCHC 35.2 g/dl (32.0-36.0); MEAN CELL VOLUME 94.5 fl (80-96); MONO % 7.5 % (3.8-10.2); NEUT % 72.6 % (42.8-82.8); PLATELET COUNT 358 10^3/uL (134-434); RBC 3.63 M/mm3 (3.60-5.2); RDW 14.1 % (11.6-15.6); WHITE BLOOD COUNT 6.6 K/mm3 (4.0-10.0)
[2024-03-06 03:02] LABS: INR 1.01 (0.83-1.09); PROTHROMBIN TIME (PATIENT) 11.6 SEC (9.7-13.0)
[2024-03-06 03:04] LABS: ACTIVATED PTT 30.3 SECONDS (25.2-36.5)
[2024-03-06 03:22] LABS: VENOUS BASE EXCESS 1.2 mmol/L (-2-2); VENOUS O2 SATURATION 36.7 % (70-80); VENOUS PCO2 49.1 mmHg (38-52); VENOUS PH 7.362 (7.310-7.410)
[2024-03-06 03:32] LABS: POTASSIUM 4.5 mmol/L (3.5-5.1)
[2024-03-06 03:34] LABS: ALBUMIN 3.3 g/dl (3.4-5.0); BLOOD UREA NITROGEN 23.3 mg/dL (7-18); CALCIUM 9.4 mg/dL (8.5-10.1)
[2024-03-06 03:38] LABS: CREATININE 0.8 mg/dL (0.55-1.3)
[2024-03-06 03:39] LABS: BILIRUBIN,TOTAL 0.4 mg/dL (0.2-1); TOT PROT 6.6 g/dl (6.4-8.2)
[2024-03-06 06:33] LABS: EPI CELLS >36 /uL (0-25.1); HYALINE CASTS 8 /uL (0-3.1); URINE APPEARANCE CLEAR; URINE BACTERIA 2370 /uL (0-1359); URINE BILIRUBIN NEGATIVE (NEGATIVE); URINE COLOR YELLOW; URINE GLUCOSE (UA) NEGATIVE (NEGATIVE); URINE KETONE NEGATIVE (NEGATIVE); URINE LEUK ESTERASE 2+ (NEGATIVE); URINE NITRITE NEGATIVE (NEGATIVE); URINE PROTEIN TRACE (NEGATIVE); URINE RBC 20 /uL (0-23.9); URINE WBC 76 /uL (0-25.8)
[2024-03-06 08:47] VITALS: TEMP 97.7
[2024-03-06 09:37] VITALS: BP 160/78; PULSE 80; RESP 20
== END 2024-03-06 10:34 ==
LOC: JER 02:18
DX: I95.9 Hypotension, unspecified (principal); N39.0 Urinary tract infection, site not specified; Z20.822 Contact with and (suspected) exposure to COVID-19
CPT/HCPCS: 0241U-QW; 36415; 71045-TC-FY; 80053; 81003; 82803; 82962; 83605; 84484; 85025; 85610; 85730; 86850; 86900; 86901; 87040; 87086; 87186; 93005; 93010; 99285-25

== ENCOUNTER 2024-04-06 09:32 | Emergency (ER) | payer OTHER ==
[2024-04-06 10:13] VITALS: RESP 16; TEMP 97.7; BMI 13.5
[2024-04-06] MEDS: SODIUM CHLORIDE 1,000 ML IV SCH (10:42)
[2024-04-06 11:05] LABS: POTASSIUM 5.7 mmol/L (3.5-5.1)
[2024-04-06 11:06] LABS: BASO % 0.5 % (0-2.0); EOS % 2.2 % (0-4.5); HEMATOCRIT 41.5 % (32.4-45.2); HEMOGLOBIN 14.1 GM/dL (10.7-15.3); LYMPH % 23.2 % (8-40); MCH 32.8 pg (25.7-33.7); MEAN CELL VOLUME 96.3 fl (80-96); MEAN PLT VOLUME 8.3 fl (7.5-11.1); MONO % 6.8 % (3.8-10.2); NEUT % 67.3 % (42.8-82.8); PLATELET COUNT 331 10^3/uL (134-434); RBC 4.31 M/mm3 (3.60-5.2); RDW 13.1 % (11.6-15.6); WHITE BLOOD COUNT 5.3 K/mm3 (4.0-10.0)
[2024-04-06 11:08] LABS: ALBUMIN 3.7 g/dl (3.4-5.0); CALCIUM 9.7 mg/dL (8.5-10.1)
[2024-04-06 11:11] LABS: CREATININE 0.6 mg/dL (0.55-1.3)
[2024-04-06 11:13] LABS: BILIRUBIN,TOTAL 0.6 mg/dL (0.2-1); TOT PROT 7.4 g/dl (6.4-8.2)
[2024-04-06 11:15] LABS: INR 0.97 (0.83-1.09); PROTHROMBIN TIME (PATIENT) 11.2 SEC (9.7-13.0)
[2024-04-06 11:18] LABS: ACTIVATED PTT 24.4 SECONDS (25.2-36.5)
[2024-04-06 12:20] LABS: URINE APPEARANCE CLEAR; URINE BILIRUBIN NEGATIVE (NEGATIVE); URINE COLOR YELLOW; URINE GLUCOSE (UA) NEGATIVE (NEGATIVE); URINE KETONE NEGATIVE (NEGATIVE); URINE LEUK ESTERASE NEGATIVE (NEGATIVE); URINE NITRITE NEGATIVE (NEGATIVE); URINE PROTEIN NEGATIVE (NEGATIVE); URINE UROBILINOGEN 0.2 mg/dL (0.2-1.0)
[2024-04-06 12:35] LABS: POTASSIUM 4.1 mmol/L (3.5-5.1)
[2024-04-06 12:37] LABS: ALBUMIN 3.3 g/dl (3.4-5.0)
[2024-04-06 12:38] LABS: BLOOD UREA NITROGEN 17.3 mg/dL (7-18)
[2024-04-06 12:41] LABS: CREATININE 0.5 mg/dL (0.55-1.3)
[2024-04-06 12:42] LABS: BILIRUBIN,TOTAL 0.6 mg/dL (0.2-1); TOT PROT 6.5 g/dl (6.4-8.2)
[2024-04-06 15:47] VITALS: BP 141/77; PULSE 65
== END 2024-04-06 15:49 ==
LOC: JER 09:32
DX: S09.90XA Unspecified injury of head, initial encounter (principal); F03.90 Unspecified dementia, unspecified severity, without behavioral disturbance, psychotic disturbance, mood disturbance, and anxiety; W19.XXXA Unspecified fall, initial encounter
CPT/HCPCS: 36415; 70450-TC; 72125-TC; 80053; 80061; 81003; 82550; 82962; 83036; 84484; 85025; 85610; 85730; 86850; 86900; 86901; 87086; 87186; 93005; 93010; 99285-25

== ENCOUNTER 2024-05-27 12:41 | Inpatient (IN) | payer OTHER ==
[2024-05-27] MEDS ORDERED: ACETAMINOPHEN INJECTION 100 ML ONE (13:26)
[2024-05-27 13:37] LABS: HEMATOCRIT 37.8 % (32.4-45.2); HEMOGLOBIN 12.5 GM/dL (10.7-15.3); MCH 31.6 pg (25.7-33.7); MEAN CELL VOLUME 95.6 fl (80-96); MEAN PLT VOLUME 8.9 fl (7.5-11.1); PLATELET COUNT 294 10^3/uL (134-434); RBC 3.96 M/mm3 (3.60-5.2); RDW 13.4 % (11.6-15.6); WHITE BLOOD COUNT 9.8 K/mm3 (4.0-10.0)
[2024-05-27 13:45] LABS: INR 1.13 (0.83-1.09); PROTHROMBIN TIME (PATIENT) 12.9 SEC (9.7-13.0)
[2024-05-27] MEDS: SODIUM CHLORIDE 0.9% 500 ML INFUS.BAG IV ONE ×2 (13:45→15:48)
[2024-05-27 13:46] LABS: VENOUS BASE EXCESS -3.1 mmol/L (-2-2); VENOUS O2 SATURATION 74.6 % (70-80); VENOUS PCO2 32.8 mmHg (38-52); VENOUS PH 7.423 (7.310-7.410)
[2024-05-27] MEDS: ACETAMINOPHEN 1000 MG/100 ML BAG IVPB ONE (13:46)
[2024-05-27 13:47] LABS: ACTIVATED PTT 25.2 SECONDS (25.2-36.5)
[2024-05-27 13:53] LABS: POTASSIUM 3.9 mmol/L (3.5-5.1)
[2024-05-27 13:54] LABS: CALCIUM 9.7 mg/dL (8.5-10.1)
[2024-05-27 13:55] LABS: ALBUMIN 3.1 g/dl (3.4-5.0)
[2024-05-27 13:58] LABS: CREATININE 2.2 mg/dL (0.55-1.3)
[2024-05-27 13:59] LABS: TOT PROT 7.1 g/dl (6.4-8.2)
[2024-05-27] MEDS ORDERED: PIPERACILLIN/TAZOB 4.5 GM 4.5 GM/100 ML BAG IVPB ONE (13:59)
[2024-05-27 14:02] LABS: LACTIC ACID 5.3 mmol/L (0.4-2.0)
[2024-05-27] MEDS: PIPERACILLIN/TAZOB 4.5 GM 4.5 GM in DEXTROSE 5%-WATER 100 ML IVPB ONE (14:02)
[2024-05-27] MEDS ORDERED: VANCOMYCIN 1 GRAM (PRE-DOCKED) 1,000 MG/250 ML BAG IVPB ONE (14:08)
[2024-05-27 14:23] LABS: ANISOCYTOSIS 0; HELMET CELLS 0; HOWELL-JOLLY BODIES 0; MACROCYTOSIS 0; OVALOCYTE 0; ROULEAU 0; SICKELED CELLS 0; TARGET CELLS 0; TEAR DROP CELLS 0; TOXIC GRANULATION 0
[2024-05-27] MEDS: VANCOMYCIN 1,000 MG in DEXTROSE 5%-WATER - 250 ML IVPB ONE (15:48)
[2024-05-27 17:45] LABS: EPI CELLS >36 /uL (0-25.1); HYALINE CASTS 2 /uL (0-3.1); URINE APPEARANCE TURBID; URINE BACTERIA 8695 /uL (0-1359); URINE BILIRUBIN 2+ (NEGATIVE); URINE COLOR RED; URINE GLUCOSE (UA) NEGATIVE (NEGATIVE); URINE KETONE NEGATIVE (NEGATIVE); URINE LEUK ESTERASE 3+ (NEGATIVE); URINE NITRITE POSITIVE (NEGATIVE); URINE PROTEIN 2+ (NEGATIVE); URINE RBC 5712 /uL (0-23.9); URINE UROBILINOGEN 0.2 mg/dL (0.2-1.0); URINE WBC 4862 /uL (0-25.8)
[2024-05-27] MEDS: LACTATED RINGERS SOLUTION 1,000 ML/1,000 ML INFUS.BAG IV SCH (21:30)
[2024-05-27] MEDS: CHLORHEXIDINE GLUCONATE 4% CLEANSER FOR DECOLONIZATION TP SCH (21:31)
[2024-05-27] MEDS: INSULIN ASPART SLIDING SCALE (NOVOLOG) 1 VIAL SQ SCH (21:31)
[2024-05-27] MEDS: MUPIROCIN 2% TOPICAL OINTMENT FOR DECOLONIZATION NS SCH (21:31)
[2024-05-27 21:58] LABS: HEMATOCRIT 31.5 % (32.4-45.2); HEMOGLOBIN 10.1 GM/dL (10.7-15.3); MCH 30.8 pg (25.7-33.7); MCHC 32.1 g/dl (32.0-36.0); MEAN PLT VOLUME 8.5 fl (7.5-11.1); PLATELET COUNT 221 10^3/uL (134-434); RBC 3.29 M/mm3 (3.60-5.2); RDW 13.5 % (11.6-15.6); WHITE BLOOD COUNT 26.6 K/mm3 (4.0-10.0)
[2024-05-27 22:18] LABS: POTASSIUM 3.4 mmol/L (3.5-5.1)
[2024-05-27 22:21] LABS: ALBUMIN 2.5 g/dl (3.4-5.0); BLOOD UREA NITROGEN 69.3 mg/dL (7-18); CALCIUM 8.4 mg/dL (8.5-10.1)
[2024-05-27 22:24] LABS: CREATININE 2.2 mg/dL (0.55-1.3); PHOSPHOROUS 3.6 mg/dL (2.5-4.9)
[2024-05-27 22:26] LABS: BILIRUBIN,TOTAL 0.9 mg/dL (0.2-1); LACTIC ACID 2.6 mmol/L (0.4-2.0)
[2024-05-27] MEDS: HEPARIN NA (PORCINE) 5,000 UNITS/ML 1ML VIAL SQ SCH (22:34)
[2024-05-27 22:48] LABS: ANISOCYTOSIS 0; MACROCYTOSIS 0
[2024-05-27] MEDS: SODIUM CHLORIDE 0.45% 1,000 ML IV SCH (22:54)
[2024-05-27] MEDS: KCL 10 MEQ IVPB 10 MEQ/100 ML INFUS.BAG IVPB SCH (23:52)
[2024-05-28] MEDS: LACTATED RINGERS SOLUTION 1,000 ML/1,000 ML INFUS.BAG IV SCH (00:17)
[2024-05-28] MEDS: LACTATED RINGERS SOLUTION 1000 ML INFUS.BAG IV ONE (01:17)
[2024-05-28] MEDS: NOREPINEPHRINE BITARTRATE 4,000 MCG in DEXTROSE 5%-WATER - 496 ML IV SCH (01:18)
[2024-05-28] MEDS: TAZOB IVPB SCH (01:36)
[2024-05-28] MEDS: WATER IVPB SCH (01:36)
[2024-05-28] MEDS: PIPERACILLIN IVPB SCH (01:36)
[2024-05-28] MEDS: DEXTROSE 5% IVPB SCH (01:36)
[2024-05-28] MEDS ORDERED: PIPERACILLIN/TAZOB 2.25 GM 2.25 GM/50 ML BAG IVPB SCH (02:00)
[2024-05-28 06:37] LABS: HEMATOCRIT 29.2 % (32.4-45.2); HEMOGLOBIN 9.6 GM/dL (10.7-15.3); MCH 31.2 pg (25.7-33.7); MCHC 32.9 g/dl (32.0-36.0); MEAN PLT VOLUME 8.9 fl (7.5-11.1); PLATELET COUNT 197 10^3/uL (134-434); RBC 3.08 M/mm3 (3.60-5.2); RDW 13.3 % (11.6-15.6); WHITE BLOOD COUNT 24.3 K/mm3 (4.0-10.0)
[2024-05-28 06:55] LABS: POTASSIUM 4.1 mmol/L (3.5-5.1)
[2024-05-28 07:01] LABS: CALCIUM 8.7 mg/dL (8.5-10.1)
[2024-05-28 07:02] LABS: ALBUMIN 2.3 g/dl (3.4-5.0); BLOOD UREA NITROGEN 67.6 mg/dL (7-18); MAGNESIUM 1.8 mg/dL (1.8-2.4)
[2024-05-28 07:05] LABS: CREATININE 1.7 mg/dL (0.55-1.3); PHOSPHOROUS 3.5 mg/dL (2.5-4.9)
[2024-05-28 07:07] LABS: BILIRUBIN,TOTAL 0.8 mg/dL (0.2-1); TOT PROT 5.5 g/dl (6.4-8.2)
[2024-05-28] MEDS: PIPERACILLIN/TAZOB 2.25 GM 2.25 GM in DEXTROSE 5%-WATER - 50 ML IVPB SCH ×2 (09:37→16:27)
[2024-05-28 10:03] LABS: ANISOCYTOSIS 0; HELMET CELLS 0; HOWELL-JOLLY BODIES 0; MACROCYTOSIS 0; OVALOCYTE 0; ROULEAU 0; SICKELED CELLS 0; TARGET CELLS 0; TEAR DROP CELLS 0; TOXIC GRANULATION 0
[2024-05-28] MEDS ORDERED: DEXTROSE 50%-WATER 25 GM/50 ML DISP.SYRIN ONE (11:17)
[2024-05-28] MEDS: DEXTROSE 50%-WATER - 25 GM/50 ML VIAL IVPUSH ONE (11:55)
[2024-05-28] MEDS ORDERED: ACETAMINOPHEN 1000 MG/100 ML BAG IVPB PRN (12:38)
[2024-05-28] MEDS: ACETAMINOPHEN 1000 MG/100 ML BAG IVPB PRN (13:18)
[2024-05-28] MEDS: DEXTROSE 5%-0.45% SALINE 1,000 ML IV SCH (16:27)
[2024-05-29 10:36] LABS: HEMOGLOBIN 10.8 GM/dL (10.7-15.3); MCHC 32.6 g/dl (32.0-36.0); MEAN CELL VOLUME 95.1 fl (80-96); MEAN PLT VOLUME 9.2 fl (7.5-11.1); PLATELET COUNT 195 10^3/uL (134-434); RBC 3.47 M/mm3 (3.60-5.2); RDW 13.4 % (11.6-15.6); WHITE BLOOD COUNT 21.4 K/mm3 (4.0-10.0)
[2024-05-29 11:04] LABS: POTASSIUM 3.4 mmol/L (3.5-5.1)
[2024-05-29 11:06] LABS: ALBUMIN 2.3 g/dl (3.4-5.0); BLOOD UREA NITROGEN 52.9 mg/dL (7-18); CALCIUM 8.6 mg/dL (8.5-10.1)
[2024-05-29 11:11] LABS: BILIRUBIN,TOTAL 0.5 mg/dL (0.2-1); TOT PROT 5.8 g/dl (6.4-8.2)
[2024-05-29 11:43] LABS: ANISOCYTOSIS 0; MACROCYTOSIS 0
[2024-05-29] MEDS: ZINC OXIDE 20% TOPICAL OINTMENT 30 GM TUBE TP SCH (14:38)
[2024-05-29] MEDS: CARBIDOPA/LEVODOPA 25/100 TABLET (FP) PO SCH (17:13)
[2024-05-29] MEDS: KCL 10 MEQ IVPB 10 MEQ/100 ML INFUS.BAG IVPB SCH (17:21)
[2024-05-29] MEDS: MAGNESIUM SULF 50% (8.12 MEQ/2 ML-1 GM VIAL) IVPB ONE (17:22)
[2024-05-29] MEDS: POTASSIUM CHLORIDE ORAL LIQUID 20 MEQ/15 ML PO ONE (17:22)
[2024-05-29] MEDS: PIPERACILLIN/TAZOB 2.25 GM 2.25 GM in DEXTROSE 5%-WATER - 50 ML IVPB SCH (19:35)
[2024-05-29] MEDS: ALBUTEROL SO4 2.5/IPRATROPIUM 0.5 INH SOL 3 ML VIAL.NEB. NEB SCH (20:17)
[2024-05-29] MEDS: ATORVASTATIN CA 20 MG TABLET (FP) PO SCH (21:12)
[2024-05-30 07:25] LABS: HEMATOCRIT 33.7 % (32.4-45.2); MCH 31.2 pg (25.7-33.7); MCHC 32.8 g/dl (32.0-36.0); MEAN CELL VOLUME 95.2 fl (80-96); MEAN PLT VOLUME 9.5 fl (7.5-11.1); PLATELET COUNT 196 10^3/uL (134-434); RBC 3.54 M/mm3 (3.60-5.2); RDW 13.2 % (11.6-15.6); WHITE BLOOD COUNT 13.2 K/mm3 (4.0-10.0)
[2024-05-30 07:40] LABS: POTASSIUM 3.4 mmol/L (3.5-5.1)
[2024-05-30 07:44] LABS: CALCIUM 8.9 mg/dL (8.5-10.1)
[2024-05-30 07:45] LABS: ALBUMIN 2.3 g/dl (3.4-5.0); BLOOD UREA NITROGEN 34.6 mg/dL (7-18); MAGNESIUM 2.1 mg/dL (1.8-2.4)
[2024-05-30 07:48] LABS: CREATININE 0.8 mg/dL (0.55-1.3)
[2024-05-30 07:49] LABS: BILIRUBIN,TOTAL 0.5 mg/dL (0.2-1)
[2024-05-30 07:50] LABS: TOT PROT 5.9 g/dl (6.4-8.2)
[2024-05-30] MEDS: MIRTAZAPINE 15 MG TABLET (FP) PO SCH (10:09)
[2024-05-30] MEDS: POTASSIUM CHLORIDE ORAL LIQUID 20 MEQ/15 ML PO ONE (10:09)
[2024-05-30] MEDS: ZINC SULFATE 220 MG CAPSULE (FP) PO SCH (10:09)
[2024-05-30] MEDS: KCL 10 MEQ IVPB 10 MEQ/100 ML INFUS.BAG IVPB SCH (11:30)
[2024-05-30] MEDS: DEXTROSE 5%-WATER - 1,000 ML IV SCH (13:28)
[2024-05-30] MEDS: PIPERACILLIN/TAZOB 2.25 GM 2.25 GM/50 ML BAG IVPB SCH (17:23)
[2024-05-31 08:30] LABS: HEMATOCRIT 36.2 % (32.4-45.2); MCH 31.1 pg (25.7-33.7); MCHC 33.2 g/dl (32.0-36.0); MEAN CELL VOLUME 93.7 fl (80-96); MEAN PLT VOLUME 9.2 fl (7.5-11.1); PLATELET COUNT 214 10^3/uL (134-434); RBC 3.86 M/mm3 (3.60-5.2); RDW 13.2 % (11.6-15.6); WHITE BLOOD COUNT 8.3 K/mm3 (4.0-10.0)
[2024-05-31 08:31] LABS: POTASSIUM 3.8 mmol/L (3.5-5.1)
[2024-05-31 08:33] LABS: ALBUMIN 2.4 g/dl (3.4-5.0); BLOOD UREA NITROGEN 14.8 mg/dL (7-18); CALCIUM 8.6 mg/dL (8.5-10.1); MAGNESIUM 1.7 mg/dL (1.8-2.4)
[2024-05-31 08:36] LABS: CREATININE 0.6 mg/dL (0.55-1.3)
[2024-05-31 08:38] LABS: BILIRUBIN,TOTAL 0.6 mg/dL (0.2-1); TOT PROT 6.2 g/dl (6.4-8.2)
[2024-05-31] MEDS: POTASSIUM PHOSPHATE 30 MM in DEXTROSE 5%-WATER - 500 ML IVPB ONE (12:17)
[2024-05-31] MEDS: MAGNESIUM 2GM/50ML STERILE WATER IVPB IVPB ONE (12:17)
[2024-05-31] MEDS: amLODIPine BESYLATE 5 MG TABLET (FP) PO SCH (14:20)
[2024-05-31] MEDS: PIPERACILLIN/TAZOB 3.375 GM 50 ML IVPB SCH (17:04)
[2024-06-01 08:09] LABS: BASO % 0.2 % (0-2.0); EOS % 2.1 % (0-4.5); HEMATOCRIT 34.1 % (32.4-45.2); HEMOGLOBIN 11.5 GM/dL (10.7-15.3); LYMPH % 7.1 % (8-40); MCH 31.2 pg (25.7-33.7); MCHC 33.9 g/dl (32.0-36.0); MEAN PLT VOLUME 8.9 fl (7.5-11.1); MONO % 3.5 % (3.8-10.2); NEUT % 87.1 % (42.8-82.8); PLATELET COUNT 223 10^3/uL (134-434); RDW 13.2 % (11.6-15.6); WHITE BLOOD COUNT 10.4 K/mm3 (4.0-10.0)
[2024-06-01 08:31] LABS: CALCIUM 8.5 mg/dL (8.5-10.1); POTASSIUM 3.7 mmol/L (3.5-5.1)
[2024-06-01 08:32] LABS: ALBUMIN 2.5 g/dl (3.4-5.0); BLOOD UREA NITROGEN 11.1 mg/dL (7-18); MAGNESIUM 1.9 mg/dL (1.8-2.4)
[2024-06-01 08:35] LABS: CREATININE 0.5 mg/dL (0.55-1.3); PHOSPHOROUS 2.9 mg/dL (2.5-4.9)
[2024-06-01 08:36] LABS: BILIRUBIN,TOTAL 0.7 mg/dL (0.2-1)
[2024-06-01 14:29] VITALS: BMI 15.0
[2024-06-01] MEDS: AMINO ACIDS 4.25%/D5W 1,000 ML IV SCH (17:56)
[2024-06-02 08:38] LABS: POTASSIUM 3.8 mmol/L (3.5-5.1)
[2024-06-02 08:40] LABS: BLOOD UREA NITROGEN 17.1 mg/dL (7-18); CALCIUM 8.6 mg/dL (8.5-10.1); MAGNESIUM 1.7 mg/dL (1.8-2.4)
[2024-06-02 08:43] LABS: CREATININE 0.6 mg/dL (0.55-1.3)
[2024-06-02] MEDS: ASCORBIC ACID 250 MG TABLET (FP) PO SCH (09:04)
[2024-06-02] MEDS: NAPH,MB-DB/K PH,MBDB POWDER PACKET PO ONE (10:18)
[2024-06-02] MEDS: MAGNESIUM SULF 50% (8.12 MEQ/2 ML-1 GM VIAL) IVPB ONE (10:18)
[2024-06-03 06:57] LABS: HEMATOCRIT 29.4 % (32.4-45.2); HEMOGLOBIN 9.9 GM/dL (10.7-15.3); MCH 31.3 pg (25.7-33.7); MCHC 33.6 g/dl (32.0-36.0); MEAN CELL VOLUME 93.3 fl (80-96); MEAN PLT VOLUME 8.6 fl (7.5-11.1); PLATELET COUNT 241 10^3/uL (134-434); RBC 3.16 M/mm3 (3.60-5.2); RDW 12.9 % (11.6-15.6); WHITE BLOOD COUNT 7.9 K/mm3 (4.0-10.0)
[2024-06-03 07:06] LABS: POTASSIUM 3.6 mmol/L (3.5-5.1)
[2024-06-03 07:08] LABS: CALCIUM 8.4 mg/dL (8.5-10.1)
[2024-06-03 07:09] LABS: ALBUMIN 2.1 g/dl (3.4-5.0); BLOOD UREA NITROGEN 21.6 mg/dL (7-18); MAGNESIUM 1.9 mg/dL (1.8-2.4)
[2024-06-03 07:12] LABS: CREATININE 0.5 mg/dL (0.55-1.3); PHOSPHOROUS 1.9 mg/dL (2.5-4.9)
[2024-06-03 07:14] LABS: TOT PROT 5.4 g/dl (6.4-8.2)
[2024-06-03 07:19] LABS: BILIRUBIN,TOTAL 0.5 mg/dL (0.2-1)
[2024-06-03] MEDS: SODIUM PHOSPHATE - 30 MM in DEXTROSE 5%-WATER - 250 ML IVPB ONE (14:55)
[2024-06-03] MEDS: CARBIDOPA/LEVODOPA 25/100 TABLET (FP) PO SCH (18:27)
[2024-06-04 08:48] LABS: HEMATOCRIT 28.4 % (32.4-45.2); HEMOGLOBIN 9.9 GM/dL (10.7-15.3); MCHC 34.9 g/dl (32.0-36.0); MEAN CELL VOLUME 91.6 fl (80-96); MEAN PLT VOLUME 8.8 fl (7.5-11.1); PLATELET COUNT 248 10^3/uL (134-434); RBC 3.11 M/mm3 (3.60-5.2); WHITE BLOOD COUNT 7.6 K/mm3 (4.0-10.0)
[2024-06-04 09:02] LABS: POTASSIUM 3.6 mmol/L (3.5-5.1)
[2024-06-04 09:04] LABS: ALBUMIN 2.2 g/dl (3.4-5.0); CALCIUM 8.3 mg/dL (8.5-10.1)
[2024-06-04 09:05] LABS: BLOOD UREA NITROGEN 22.8 mg/dL (7-18); MAGNESIUM 1.9 mg/dL (1.8-2.4)
[2024-06-04 09:07] LABS: CREATININE 0.4 mg/dL (0.55-1.3); PHOSPHOROUS 3.1 mg/dL (2.5-4.9)
[2024-06-04 09:09] LABS: BILIRUBIN,TOTAL 0.6 mg/dL (0.2-1); TOT PROT 5.6 g/dl (6.4-8.2)
[2024-06-04] MEDS: MIRTAZAPINE 15 MG TABLET (FP) PO SCH (09:54)
[2024-06-04] MEDS: AMINO ACIDS/PROTEIN HYDROLYS 30 ML LIQUID.PKT PO SCH (17:06)
[2024-06-04] MEDS: AMINO ACIDS 4.25%/D5W 1,000 ML IV SCH (20:54)
[2024-06-04] MEDS ORDERED: CHLORHEXIDINE GLUCONATE 4% CLEANSER FOR DECOLONIZATION TP SCH (22:00)
[2024-06-04] MEDS: ATORVASTATIN CA 20 MG TABLET (FP) PO SCH (22:10)
[2024-06-04] MEDS: PIPERACILLIN/TAZOB 3.375 GM 50 ML IVPB SCH (22:11)
[2024-06-04] MEDS: INSULIN ASPART SLIDING SCALE (NOVOLOG) 1 VIAL SQ SCH (22:28)
[2024-06-05] MEDS: ZINC OXIDE 20% TOPICAL OINTMENT 30 GM TUBE TP SCH (02:20)
[2024-06-05] MEDS: ALBUTEROL SO4 2.5/IPRATROPIUM 0.5 INH SOL 3 ML VIAL.NEB. NEB SCH (02:22)
[2024-06-05 08:43] LABS: HEMATOCRIT 27.1 % (32.4-45.2); HEMOGLOBIN 9.2 GM/dL (10.7-15.3); MCH 31.6 pg (25.7-33.7); MEAN CELL VOLUME 92.8 fl (80-96); MEAN PLT VOLUME 8.5 fl (7.5-11.1); PLATELET COUNT 282 10^3/uL (134-434); RBC 2.92 M/mm3 (3.60-5.2); WHITE BLOOD COUNT 9.4 K/mm3 (4.0-10.0)
[2024-06-05 08:55] LABS: POTASSIUM 3.6 mmol/L (3.5-5.1)
[2024-06-05] MEDS: ASCORBIC ACID 250 MG TABLET (FP) PO SCH (09:07)
[2024-06-05] MEDS: ZINC SULFATE 220 MG CAPSULE (FP) PO SCH (09:07)
[2024-06-05 09:10] LABS: ALBUMIN 2.3 g/dl (3.4-5.0); BLOOD UREA NITROGEN 28.1 mg/dL (7-18); CALCIUM 8.5 mg/dL (8.5-10.1); MAGNESIUM 1.9 mg/dL (1.8-2.4)
[2024-06-05 09:13] LABS: CREATININE 0.5 mg/dL (0.55-1.3); PHOSPHOROUS 1.8 mg/dL (2.5-4.9)
[2024-06-05 09:15] LABS: BILIRUBIN,TOTAL 0.4 mg/dL (0.2-1); TOT PROT 5.6 g/dl (6.4-8.2)
[2024-06-05] MEDS: HEPARIN NA (PORCINE) 5,000 UNITS/ML 1ML VIAL SQ SCH (21:59)
[2024-06-06 09:41] LABS: BASO % 0.4 % (0-2.0); EOS % 1.9 % (0-4.5); HEMATOCRIT 29.6 % (32.4-45.2); HEMOGLOBIN 10.1 GM/dL (10.7-15.3); LYMPH % 11.5 % (8-40); MCH 32.1 pg (25.7-33.7); MCHC 34.3 g/dl (32.0-36.0); MEAN CELL VOLUME 93.6 fl (80-96); MEAN PLT VOLUME 8.3 fl (7.5-11.1); MONO % 5.5 % (3.8-10.2); NEUT % 80.7 % (42.8-82.8); PLATELET COUNT 331 10^3/uL (134-434); RBC 3.16 M/mm3 (3.60-5.2); RDW 13.4 % (11.6-15.6)
[2024-06-06 10:01] LABS: POTASSIUM 4.2 mmol/L (3.5-5.1)
[2024-06-06 10:06] LABS: CALCIUM 8.6 mg/dL (8.5-10.1)
[2024-06-06 10:07] LABS: BLOOD UREA NITROGEN 23.5 mg/dL (7-18); MAGNESIUM 1.8 mg/dL (1.8-2.4)
[2024-06-06 10:10] LABS: ALBUMIN 2.3 g/dl (3.4-5.0); CREATININE 0.6 mg/dL (0.55-1.3)
[2024-06-06 10:12] LABS: BILIRUBIN,TOTAL 0.4 mg/dL (0.2-1); TOT PROT 6.1 g/dl (6.4-8.2)
[2024-06-06] MEDS: MULTIVIT-MINERALS ORAL LIQUID PO SCH (14:30)
[2024-06-06] MEDS: AMOX TR/POT CLAV 500MG/125MG TABLETS (FP) PO SCH (17:02)
[2024-06-06 18:27] VITALS: BP 102/52; PULSE 92; RESP 16; TEMP 97.9
== END 2024-06-07 04:00 | DRG 871 ==
LOC: JER 12:41 → JERBED 16:45 → JICU 20:18 → J8W 06-04 16:06
PROVIDERS: ADMIT Internal Medicine; ATTEND Nurse Practitioner Family
DX: A40.9 Streptococcal sepsis, unspecified (principal); E43 Unspecified severe protein-calorie malnutrition; N39.0 Urinary tract infection, site not specified; Z68.1 Body mass index [BMI] 19.9 or less, adult; N17.9 Acute kidney failure, unspecified; E87.0 Hyperosmolality and hypernatremia; N13.30 Unspecified hydronephrosis; R64 Cachexia; K62.5 Hemorrhage of anus and rectum; E87.20 Acidosis, unspecified; E11.22 Type 2 diabetes mellitus with diabetic chronic kidney disease; I12.9 Hypertensive chronic kidney disease with stage 1 through stage 4 chronic kidney disease, or unspecified chronic kidney disease; G20.A1 Parkinson's disease without dyskinesia, without mention of fluctuations; F03.90 Unspecified dementia, unspecified severity, without behavioral disturbance, psychotic disturbance, mood disturbance, and anxiety; G31.83 Neurocognitive disorder with Lewy bodies; D64.9 Anemia, unspecified; L89.152 Pressure ulcer of sacral region, stage 2; E78.5 Hyperlipidemia, unspecified; E83.42 Hypomagnesemia; E83.39 Other disorders of phosphorus metabolism; N18.9 Chronic kidney disease, unspecified
CPT/HCPCS: 0241U-QW; 36415; 70450-TC; 71045-TC-FY; 74176-TC; 76775-TC; 80048; 80053; 81003; 82272; 82803; 82962; 83605; 83735; 84100; 84439; 84443; 84484; 85025; 85027; 85610; 85730; 86850; 86900; 86901; 87040; 87086; 87186; 87481; 87635; 93005; 93010; 94640; 99285-25; J0131; J1644

== ENCOUNTER 2025-02-26 01:06 | Inpatient (IN) | payer OTHER ==
[2025-02-26 01:38] VITALS: BMI 24.0
[2025-02-26 02:05] LABS: BG HCT 39.0 % (32.4-45.2); MCHC 30.0 g/dl (32.2-35.5); MEAN CELL VOLUME 102.5 fl (79.4-94.8); MEAN PLT VOLUME 10.4 fl (9.4-12.3); RDW 13.3 % (12.4-16.6); VENOUS BASE EXCESS -17.3 mmol/L (-2-2); VENOUS O2 SATURATION 98.6 % (70-80); VENOUS PCO2 64.0 mmHg (38-52)
[2025-02-26 02:21] LABS: INR 1.04 (0.83-1.09); PROTHROMBIN TIME (PATIENT) 11.3 SEC (9.7-13.0)
[2025-02-26 02:22] LABS: VENOUS PH 6.981 (7.310-7.410)
[2025-02-26 02:23] LABS: ACTIVATED PTT 33.8 SECONDS (25.2-36.5)
[2025-02-26 02:25] LABS: CO2 17 mmol/L (21-32)
[2025-02-26 02:29] LABS: SGOT/AST 223 U/L (15-37); SGPT/ALT 51 U/L (13-61)
[2025-02-26 02:30] LABS: CREATININE 1.4 mg/dL (0.55-1.3); TOT PROT 6.5 g/dl (6.4-8.2)
[2025-02-26 02:32] LABS: ALK PHOS 139 U/L (45-117)
[2025-02-26 02:40] LABS: GLUCOSE,RANDOM 458 mg/dL (74-106); LACTIC ACID 11.9 mmol/L (0.4-2.0)
[2025-02-26] MEDS: PIPERACILLIN/TAZOB 4.5 GM 4.5 GM in DEXTROSE 5%-WATER 100 ML IVPB ONE (03:30)
[2025-02-26] MEDS: LACTATED RINGERS SOLUTION 1000 ML INFUS.BAG IV ONE (03:30)
[2025-02-26] MEDS ORDERED: PIPERACILLIN/TAZOB 4.5 GM 4.5 GM/100 ML BAG IVPB ONE (04:08)
[2025-02-26] MEDS ORDERED: HEPARIN NA (PORCINE) 5,000 UNITS/ML 1ML VIAL IVPUSH PRN ×2 (06:04)
[2025-02-26] MEDS ORDERED: VANCOMYCIN 1 GRAM (PRE-DOCKED) 1,000 MG/250 ML BAG IVPB ONE (06:23)
[2025-02-26] MEDS: VANCOMYCIN 1,000 MG in DEXTROSE 5%-WATER - 250 ML IVPB ONE (06:27)
[2025-02-26 06:30] LABS: ARTERIAL BLD GAS O2 SATURATION 99.8 % (95-98); ARTERIAL BLOOD GAS BASE EXCESS -9.2 mmol/L (-2-2); ARTERIAL BLOOD GAS PCO2 37.10 mmHg (35-45); ARTERIAL BLOOD GAS PO2 427.4 mmHg (80-100); BG HCT 39.0 % (32.4-45.2)
[2025-02-26 06:36] LABS: LACTIC ACID 7.3 mmol/L (0.4-2.0)
[2025-02-26] MEDS: VANCOMYCIN/WATER FOR INJ (PEG) 1,000 MG/200 ML BAG IVPB ONE (06:49)
[2025-02-26 06:54] LABS: LACTIC ACID 4.8 mmol/L (0.4-2.0)
[2025-02-26 07:36] LABS: VENT MODE V-A/C; VENT RATE 26
[2025-02-26] MEDS ORDERED: PANTOPRAZOLE SODIUM 40 MG VIAL ONE (07:45)
[2025-02-26] MEDS ORDERED: HEPARIN INFUSION - 25,000 UNITS/500 ML INFUS.BAG ONE (07:45)
[2025-02-26] MEDS: HEPARIN INFUSION - 25,000 UNITS/500 ML INFUS.BAG IVPB SCH (07:59)
[2025-02-26] MEDS: PANTOPRAZOLE SODIUM 40 MG VIAL IVPUSH ONE (07:59)
[2025-02-26] MEDS ORDERED: NOREPINEPHRINE BITARTRATE 4,000 MCG in DEXTROSE 5%-WATER - 496 ML IV SCH (08:00)
[2025-02-26 08:27] LABS: INR 1.17 (0.83-1.09); PROTHROMBIN TIME (PATIENT) 12.9 SEC (9.7-13.0)
[2025-02-26 09:08] LABS: LACTIC ACID 4.9 mmol/L (0.4-2.0)
[2025-02-26] MEDS: PIPERACILLIN/TAZOB 3.375 GM 3.375 GM in DEXTROSE 5%-WATER - 50 ML IVPB SCH (09:21)
[2025-02-26] MEDS: MUPIROCIN 2% TOPICAL OINTMENT FOR DECOLONIZATION NS SCH (10:00)
[2025-02-26] MEDS ORDERED: SODIUM CHLORIDE 1,000 ML IV SCH (11:15)
[2025-02-26 11:26] LABS: MCHC 31.6 g/dl (32.2-35.5); MEAN CELL VOLUME 98.0 fl (79.4-94.8); MEAN PLT VOLUME 10.0 fl (9.4-12.3); RDW 13.6 % (12.4-16.6)
[2025-02-26 11:36] LABS: INR 1.18 (0.83-1.09); PROTHROMBIN TIME (PATIENT) 13.0 SEC (9.7-13.0)
[2025-02-26] MEDS ORDERED: NOREPINEPHRINE BITARTRATE 4 MG/4 ML ML IV ONE (11:37)
[2025-02-26 11:39] LABS: ACTIVATED PTT 64.5 SECONDS (25.2-36.5)
[2025-02-26 11:43] LABS: CO2 24.0 mmol/L (21-32); GLUCOSE,RANDOM 139.0 mg/dL (74-106)
[2025-02-26 11:45] LABS: CREATININE 1.2 mg/dL (0.55-1.3); SGOT/AST 296.0 U/L (15-37); SGPT/ALT 86.0 U/L (13-61)
[2025-02-26 11:47] LABS: TOT PROT 6.0 g/dl (6.4-8.2)
[2025-02-26 11:48] LABS: ALK PHOS 96.0 U/L (45-117); LACTIC ACID 3.2 mmol/L (0.4-2.0)
[2025-02-26] MEDS: NOREPINEPHRINE BITARTRATE/D5W 8 MG/250 ML BAG IVPB SCH (14:14)
[2025-02-26] MEDS: LACTATED RINGERS SOLUTION 1,000 ML/1,000 ML INFUS.BAG IV SCH (14:15)
[2025-02-26 15:01] LABS: EPI CELLS 16 /uL (0-25.1); HYALINE CASTS 1 /uL (0-3.1); URINE APPEARANCE CLOUDY; URINE BILIRUBIN NEGATIVE (NEGATIVE); URINE COLOR YELLOW; URINE GLUCOSE (UA) 1+ (NEGATIVE); URINE KETONE NEGATIVE (NEGATIVE); URINE LEUK ESTERASE 2+ (NEGATIVE); URINE NITRITE POSITIVE (NEGATIVE); URINE PROTEIN 1+ (NEGATIVE); URINE RBC 41 /uL (0-23.9); URINE UROBILINOGEN 1.0 mg/dL (0.2-1.0); URINE WBC 294 /uL (0-25.8)
[2025-02-26 15:03] LABS: URINE BACTERIA 392 /uL (0-1359)
[2025-02-26] MEDS ORDERED: RAPID SEQUENCE INTUBATION KIT NR ONE (15:16)
[2025-02-26] MEDS: CHLORHEXIDINE GLUCONATE 4% CLEANSER FOR DECOLONIZATION TP SCH (21:15)
[2025-02-27 06:48] LABS: MCHC 32.3 g/dl (32.2-35.5); MEAN CELL VOLUME 92.6 fl (79.4-94.8); MEAN PLT VOLUME 10.5 fl (9.4-12.3); RDW 13.8 % (12.4-16.6)
[2025-02-27 07:26] LABS: CO2 24.0 mmol/L (21-32); GLUCOSE,RANDOM 87.0 mg/dL (74-106)
[2025-02-27 07:29] LABS: CREATININE 1.2 mg/dL (0.55-1.3); SGOT/AST 213.0 U/L (15-37); SGPT/ALT 116.0 U/L (13-61)
[2025-02-27 07:30] LABS: TOT PROT 5.6 g/dl (6.4-8.2)
[2025-02-27 07:32] LABS: ALK PHOS 79.0 U/L (45-117)
[2025-02-27] MEDS: PIPERACILLIN/TAZOB 3.375 GM 3.375 GM in DEXTROSE 5%-WATER - 50 ML IVPB SCH (09:27)
[2025-02-27] MEDS ORDERED: ENOXAPARIN NA (PORCINE) 40 MG/0.4 ML DISP.SYRIN SQ SCH (10:00)
[2025-02-27] MEDS: SODIUM CHLORIDE 0.45% 1,000 ML IV SCH (17:05)
[2025-02-27] MEDS: MEROPENEM 1 GM in DEXTROSE 5%-WATER 100 ML IVPB SCH (19:55)
[2025-02-28] MEDS ORDERED: AMIODARONE IN DEXTROSE,ISO-OSM 150 MG/100 ML BAG ONE (00:57)
[2025-02-28] MEDS: AMIODARONE IN DEXTROSE,ISO-OSM 150 MG/100 ML BAG IVPB ONE (01:06)
[2025-02-28] MEDS: AMIODARONE IN DEXTROSE,ISO-OSM 360 MG/200 ML BAG IV SCH ×2 (01:08→07:27)
[2025-02-28 05:33] VITALS: RESP 26
[2025-02-28 07:03] LABS: MCHC 31.9 g/dl (32.2-35.5); MEAN CELL VOLUME 93.9 fl (79.4-94.8); MEAN PLT VOLUME 11.0 fl (9.4-12.3); RDW 14.1 % (12.4-16.6)
[2025-02-28] MEDS ORDERED: FENTANYL IVPB 500 MCG/100 ML BAG IVPB SCH (15:00)
[2025-02-28] MEDS: FENTANYL NS IVPB 500 MCG/100 ML BAG IVPB SCH (15:14)
[2025-02-28] MEDS: GLYCOPYRROLATE 1 MG/5 ML VIAL IM ONE (15:15)
[2025-02-28 15:50] VITALS: PULSE 95
[2025-02-28 17:37] VITALS: BP 74/37; TEMP 96
== END 2025-02-28 17:55 | disposition expired | DRG 871 ==
LOC: JER 01:06 → JERBED 05:59 → JICU 08:41
PROVIDERS: ADMIT Internal Medicine Pulmonary Disease; ATTEND Internal Medicine Pulmonary Disease
PROC: 5A1945Z Respiratory Ventilation, 24-96 Consecutive Hours (ICD-10-PCS; principal; 2025-02-26)
DX: A41.9 Sepsis, unspecified organism (principal); G93.41 Metabolic encephalopathy; J96.90 Respiratory failure, unspecified, unspecified whether with hypoxia or hypercapnia; E87.20 Acidosis, unspecified; G93.1 Anoxic brain damage, not elsewhere classified; N17.9 Acute kidney failure, unspecified; E87.0 Hyperosmolality and hypernatremia; R64 Cachexia; J44.9 Chronic obstructive pulmonary disease, unspecified; G20.A1 Parkinson's disease without dyskinesia, without mention of fluctuations; I12.9 Hypertensive chronic kidney disease with stage 1 through stage 4 chronic kidney disease, or unspecified chronic kidney disease; N18.30 Chronic kidney disease, stage 3 unspecified; F02.80 Dementia in other diseases classified elsewhere, unspecified severity, without behavioral disturbance, psychotic disturbance, mood disturbance, and anxiety; R13.10 Dysphagia, unspecified; I46.9 Cardiac arrest, cause unspecified; G31.83 Neurocognitive disorder with Lewy bodies
CPT/HCPCS: 36415; 36600; 70450-TC; 71045-TC-FY; 80053; 81003; 82272; 82550; 82553; 82803; 82962; 83605; 83735; 84100; 84484; 85025; 85027; 85610; 85730; 86850; 86900; 86901; 87040; 87070; 87086; 87205; 87481; 87635; 93005; 93010; 93306-TC; 94002; 99291; G0480; J0282; J1644